=== PATIENT | female | born 1995 | race Two or more races ===

== ENCOUNTER 2017-09-01 18:55 | Emergency (ER) | payer SELFPAY ==
[2017-09-01 19:00] VITALS: BP 92/50; PULSE 59; RESP 16; TEMP 98; O2SAT 100
[2017-09-01] MEDS ORDERED: Sodium Chloride 0.9% 1,000 ML IV STA (19:20)
--- NOTE | 2017-09-01 20:04 | ED PDOC ---
Syncope/Near Syncope/Dizziness Time Seen by Provider: 09/01/17 19:17 Chief Complaint (Nursing): Syncope Chief Complaint (Provider): Syncope History Per: Patient History/Exam Limitations: no limitations Onset/Duration Of Symptoms: Sudden Onset Current Symptoms Are (Timing): Gone Now Activity At Onset Of Symptoms: Sitting Additional Complaint(s): 22 year old [place] female arrives to ED for an evaluation of a witnessed [place]. Patient states that she lost consciousness for 30 seconds but denies any head injury or further complaints. Prior to onset, she reports having nausea and menstrual cramping (on day 1 of menses). Patient is wishing to be discharge as she feels no symptoms at this time. PMD: none provided Past Medical History Reviewed: Historical Data, Nursing Documentation, Vital Signs Vital Signs: Last Vital Signs Temp 98.0 F 09/01/17 18:57 Pulse 59 L 09/01/17 18:57 Resp 16 09/01/17 18:57 BP 92/50 L 09/01/17 18:57 Pulse Ox 100 09/01/17 18:57 - Medical History PMH: No Chronic Diseases - Surgical History Surgical History: No Surg Hx - Family History Family History: States: Unknown Family Hx - Social History Current smoker - smoking cessation education provided: No Alcohol: None Drugs: Denies - Allergies Allergies/Adverse Reactions: Allergies Allergy/AdvReac Type Severity Reaction Status Date / Time No Known Allergies Allergy Verified 09/01/17 18:57 Review of Systems ROS Statement: Except As Marked, All Systems Reviewed And Found Negative Gastrointestinal: Positive for: Nausea, Abdominal Pain (menstral cramps) Neurological: Positive for: Other (LOC). Negative for: Headache (or head injury ) Physical Exam - Reviewed Nursing Documentation Reviewed: Yes Vital Signs Reviewed: Yes - Physical Exam Head Exam: Positive for: ATRAUMATIC, NORMAL INSPECTION (4cm hyperpigmentation region on right cheek - patient states this as her birthmark ) Skin: Positive for: Normal Color Eye Exam: Positive for: Normal appearance, EOMI, PERRL ENT: Positive for: Normal ENT Inspection Neck: Positive for: Normal Cardiovascular/Chest: Positive for: Regular Rate, Rhythm. Negative for: Murmur Respiratory: Positive for: Normal Breath Sounds. Negative for: Wheezing, Respiratory Distress Gastrointestinal/Abdominal: Positive for: Normal Exam, Soft. Negative for: Tenderness Extremity: Positive for: Normal ROM (upper/lower). Negative for: Deformity Neurologic/Psych: Positive for: Alert (x3), Oriented. Negative for: Motor/ Sensory Deficits - ECG O2 Sat by Pulse Oximetry: 100 (RA) Pulse Ox Interpretation: Normal Medical Decision Making Medical Decision Making: Initial Impression: 22 y/o [place] femal with syncopal episode Initial Plan: * EKG * CMP * Urine * Urine dipstick * CBC * NS 1,000ml IV per 1,000mls/hr * Accucheck Time: 1929 --Patient declines all treatment due to concern for medical bills and reports having no symptom presently. --This patient is choosing to leave against medical advice. The provider has personally explained to the patient that choosing to do so may result in permanent bodily harm or . The provider discussed at great length that without further evaluation and monitoring there may be unforeseen circumstances and/or deterioration causing permanent bodily harm or as a result of their choice. The patient verbalized these risks back to the physician in laymans terms. She is alert, oriented, and shows the mental capacity to make clear decisions regarding the her health care at this time. The patient continues to wish to leave against medical advice. In light of the pts decision to leave AMA, follow-up has been arranged and the patient is aware of the importance of following up as instructed. The patient has been advised that they should return to the ED immediately if they change their mind at any time, or if their condition begins to change or worsen in any way. Clinical Impression: Syncope Scribe Attestation: Documented by Brittany Seth, acting as a scribe for Johnny Little MD. Provider Scribe Attestation: All medical record entries made by the Scribe were at my direction and personally dictated by me. I have reviewed the chart and agree that the record accurately reflects my personal performance of the history, physical exam, medical decision making, and the department course for this patient. I have also personally directed, reviewed, and agree with the discharge instructions and disposition. Disposition - Clinical Impression Clinical Impression: Syncope - Disposition Disposition: Against Medical Advice Disposition Time: 07:30 Condition: STABLE Forms: [employer] (Moldovan)
== END 2017-09-01 19:30 | disposition left against medical advice (07) ==
LOC: H.ER 18:55
DX: R55 Syncope and collapse (principal)